=== PATIENT | female | born 1985 | race African-American/Black ===

== ENCOUNTER 2018-08-07 12:34 | Outpatient (CLI) | payer MEDICAID ==
[2018-08-07 12:55] VITALS: BP 117/72
--- NOTE | 2018-08-08 09:11 | Ultrasound Report ---
OB LIMITED INDICATION: Evaluate MILLIE. COMPARISON: None similar. TECHNIQUE: Transabdominal grayscale ultrasound with Doppler interrogation. Gestation: Jean Position: Cephalic Amniotic Fluid: WNL (7-24 cm) MILLIE = 23.3 cm Heart Rate: 158 BPM CONCLUSION: Findings, as above.
== END 2018-08-07 14:59 | disposition home or self-care (01) ==
LOC: TRG 12:34
PROVIDERS: ATTEND Obstetrics & Gynecology
DX: O47.02 False labor before 37 completed weeks of gestation, second trimester (principal); Z3A.27 27 weeks gestation of pregnancy
CPT/HCPCS: 59025; 76815

== ENCOUNTER 2018-09-24 20:42 | Outpatient (CLI) | payer MEDICAID ==
[2018-09-24] MEDS ORDERED: LACTATED RINGERS 500 ML IV ONE (20:53)
[2018-09-24 21:33] VITALS: BP 107/53
[2018-09-24 21:53] LABS: Bacteria,Urine 2+ /HPF (Negative); Bilirubin,Urine NEG (Negative); Blood,Urine LG (Negative); Color,Urine Straw (Yellow); Protein,Urine <15 mg/dL mg/dL (Negative); Urobilinogen,Urine < 2.0 mg/dL (<2.0)
== END 2018-09-24 22:40 | disposition home or self-care (01) ==
LOC: TRG 20:42
PROVIDERS: ATTEND Obstetrics & Gynecology
DX: O46.93 Antepartum hemorrhage, unspecified, third trimester (principal); O24.410 Gestational diabetes mellitus in pregnancy, diet controlled; Z3A.35 35 weeks gestation of pregnancy
CPT/HCPCS: 59025; 81001; 87086

== ENCOUNTER 2018-10-05 10:46 | Outpatient (CLI) | payer MEDICAID ==
[2018-10-05 11:19] VITALS: BP 108/71
[2018-10-05] MEDS ORDERED: LACTATED RINGERS 500 ML IV ONE (14:00)
== END 2018-10-05 16:00 | disposition home or self-care (01) ==
LOC: TRG 10:46
PROVIDERS: ATTEND Obstetrics & Gynecology
DX: O26.893 Other specified pregnancy related conditions, third trimester (principal); R10.13 Epigastric pain; O24.419 Gestational diabetes mellitus in pregnancy, unspecified control; Z3A.36 36 weeks gestation of pregnancy
CPT/HCPCS: 59025; 96360; J7120

== ENCOUNTER 2018-10-23 17:45 | Inpatient (IN) | payer MEDICAID ==
--- NOTE | 2018-10-23 18:14 | History and Physical Report ---
<SABI SLAUGHTER - Last Filed: 10/23/18 19:09> History of Present Illness Date of examination: 10/23/18 (sent from [facility] for IOL) History of present illness: EDC Confirmation: 11/01/2018 Gestational Age: 12 2/7 weeks Past History : 1 Term Births: 0 Premature Births: 0 Living Children: 0 Para: 0 Mult. Births: 0 Prev : 0 Aborta: 0 Elect. Ab: 0 Spont. 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 of genital herpes: no Genetic History Congenital Heart Defect: Mom: no Dad: no Kimberly Disease: Mom: no Dad: no Thalassemia Mom: no Dad: no Neural Tube Defect Mom: no Dad: no Down's Syndrome Mom: no Dad: no Scott-Sachs Mom: no Dad: no Sickle Cell Disease/Trait Mom: no Dad: no Hemophilia Mom: no Dad: no Muscular Dystrophy Mom: no Dad: no Cystic Fibrosis Mom: no Dad: no Anders Chorea Mom: no Dad: no Mental Retardation Mom: no Dad: no Fragile X Mom: no Dad: no Other Genetic/Chromosomal Disorder Mom: no Dad: no Child w/other defect Mom: no Dad: no Current Allergies: No known allergies Past History - Obstetrical History Expected Date of Delivery: 11/01/18 Actual Gestation: 38 Week(s) 5 Day(s) : 1 Para: 0 Hx # Term Pregnancies: 0 Number of Pregnancies: 0 Spontaneous Abortions: 0 Induced : 0 Number of Living Children: 0 Medications and Allergies Allergies Allergy/AdvReac Type Severity Reaction Status Date / Time No Known Allergies Allergy Verified 08/07/18 12:56 Home Medications Medication Instructions Recorded Confirmed Last Taken Type No Known Home Medications [No 10/23/18 10/23/18 Unknown History Reported Home Medications] - Physical Exam Breasts: Positive: deferred Cardiovascular: Regular rate, Normal S1, Normal S2 Lungs: Positive: Normal air movement Abdomen: Positive: normal appearance, soft, normal bowel sounds. Negative: distention, tenderness Genitourinary (Female): Positive: normal external genitalia Vulva: both: normal Vagina: Positive: normal moisture. Negative: discharge Cervix: Negative: lesion, discharge Uterus: Positive: normal size, normal contour Adnexa: both: normal Anus/Rectum: Positive: normal perianal skin, heme negative. Negative: rectal mass, hemorrhoids Extremities: Positive: normal Deep Tendon Reflex Grade: Normal +2 - Obstetrical FHR: category 1 Uterine Contraction Monitor Mode: External Cervical Dilatation: 0 Cervical Effacement Percentage: 50 station: -3 Uterine Contraction Pattern: Irregular Uterine Tone Measurement Phase: Resting Uterine Contraction Intensity: Mild Results All other labs normal. GBS Positive HBsAg Screen Negative Negative *1 RPR Non Reactive Non Reactive *2 Rubella Antibodies, IgG 26.50 index Immune >0.99 *3 Non-immune <0.90 Equivocal 0.90 - 0.99 Immune >0.99 ABO Grouping B *4 Rh Factor Positive *5 Please note: Prior records for this patient's ABO / Rh type are not available for additional verification. Antibody Screen Negative Negative *6 WBC 10.7 x10E3/uL 3.4-10.8 *7 RBC 4.74 x10E6/uL 3.77-5.28 *8 Hemoglobin 12.6 g/dL 11.1-15.9 *9 Hematocrit 38.5 % 34.0-46.6 *10 MCV 81 fL 79-97 *11 MCH 26.6 pg 26.6-33.0 *12 MCHC 32.7 g/dL 31.5-35.7 *13 RDW 13.4 % 12.3-15.4 *14 Platelets 306 x10E3/uL 150-379 *15 Neutrophils 76 % Not Estab. *16 Lymphs 17 % Not Estab. *17 Monocytes 5 % Not Estab. *18 Eos 1 % Not Estab. *19 Basos 0 % Not Estab. *20 ! Immature Cells <No Reported Value> *21 Neutrophils (Absolute) [H] 8.1 x10E3/uL 1.4-7.0 *22 Lymphs (Absolute) 1.9 x10E3/uL 0.7-3.1 *23 Monocytes(Absolute) 0.5 x10E3/uL 0.1-0.9 *24 Eos (Absolute) 0.1 x10E3/uL 0.0-0.4 *25 Baso (Absolute) 0.0 x10E3/uL 0.0-0.2 *26 ! Immature Granulocytes 1 % Not Estab. *27 ! Immature Grans (Abs) 0.1 x10E3/uL 0.0-0.1 *28 ! NRBC <No Reported Value> *29 Hematology Comments: <No Reported Value> *30 Tests: (2) AFP Tetra ([id number]) ! Results Report *31 ! Test Results: *Screen Negative* *32 Tests: (3) Panel [id number] ([id number]) HIV Screen 4th Generation wRfx Non Reactive Non Reactive *55 Tests: (4) HCV Ab w/Rflx to Verification ([id number]) ! HCV Ab <0.1 s/co ratio 0.0-0.9 *56 Tests: (5) Comment: ([id number]) ! Comment: SPRCS *57 Non reactive HCV antibody screen is consistent with no HCV infection, unless recent infection is suspected or other evidence exists to indicate HCV infection. Tests: (6) Urine Culture, Routine ([id number]) Urine Culture, Routine Final report *58 Tests: (7) Result ([id number]) ! Result 1 No growth Assessment and Plan 33yo @ 38w5d sent from [facility] office for IOL due to new dx of polyhydramnios and existing dx of GDM, diet controlled. Pt is GBS positive. Will give Amp 2gm now and hold 1gm dose until active labor. aware. - Patient Problems (1) Group B Streptococcus carrier state affecting Onset Date: ~10/23/18 Current Visit: Yes Status: Acute Plan to address problem: Ampicillin per protocol (2) Gestational diabetes, diet controlled Onset Date: ~10/23/18 Current Visit: Yes Status: Acute Plan to address problem: POC BS fasting and Q6hr Will report BS out of range >150 <JACLYN BYRNE - Last Filed: 10/23/18 22:30> Medications and Allergies Active Meds: Active Medications Ephedrine Sulfate (Ephedrine Sulfate) 10 mg IV Q2M PRN PRN Reason: Hypotension Fentanyl (Sublimaze) 100 mcg IV Q2H PRN PRN Reason: Labor Pain Oxytocin/Sodium Chloride (Pitocin/Ns 20 Unit/1000ml Drip) 20 units in 1,000 mls @ 125 mls/hr IV DIRECT MINDA Lactated Ringer's (Lactated Ringers) 1,000 mls @ 125 mls/hr IV DIRECT MINDA Ampicillin Sodium (Ampicillin/Ns 1 Gm/50 Ml) 1 gm in 50 mls @ 100 mls/hr IV Q4HR MINDA; Protocol Mineral Oil (Mineral Oil) 30 ml PO QHS PRN PRN Reason: Constipation Ondansetron HCl (Zofran) 4 mg IV Q8H PRN PRN Reason: Nausea And Vomiting Terbutaline Sulfate (Brethine) 0.25 mg SUB-Q ONCE PRN PRN Reason: Hyperstimulation/Hypertonicity - Vital Signs Vital signs: Vital Signs Pulse BP 102 H 102/67 10/23/18 18:31 10/23/18 18:31 Temp Pulse Resp BP Pulse Ox 98.9 F 99 H 18 114/74 10/23/18 19:14 10/23/18 19:16 10/23/18 19:14 10/23/18 19:16 Results Result Diagrams: 10/23/18 19:09 All other labs normal. Assessment and Plan Patient admitted for IOL d/t polyhydramnios, GDM at 38 5/7wga per [facility]. Spoke with patient with Anderson Slaughter and her present,plan of care reiterated. Cervidil placed at ~1900. Questions were encouraged and answered. They voiced understanding - Patient Problems (1) 38 weeks gestation of Current Visit: Yes Status: Acute (2) Gestational diabetes, diet controlled Onset Date: ~10/23/18 Current Visit: Yes Status: Acute (3) Group B Streptococcus carrier state affecting Onset Date: ~10/23/18 Current Visit: Yes Status: Acute (4) Polyhydramnios in third trimester Current Visit: Yes Status: Acute
[2018-10-23] MEDS ORDERED: CERVIDIL VG ONE (18:16)
[2018-10-23] MEDS ORDERED: SUBLIMAZE IV PRN (18:16)
[2018-10-23] MEDS ORDERED: BRETHINE SUB-Q PRN (18:16)
[2018-10-23] MEDS ORDERED: MINERAL OIL PO PRN (18:16)
[2018-10-23] MEDS ORDERED: AMPICILLIN/NS 2 GM/100 ML 2 GM/100 ML BAG IV ONE (18:16)
[2018-10-23] MEDS ORDERED: XYLOCAINE 2% INFILTRATI ONE (18:16)
[2018-10-23] MEDS ORDERED: ZOFRAN IV PRN (18:16)
[2018-10-23] MEDS ORDERED: PITOCin/NS 20 UNIT/1000ML DRIP 20 UNITS/1,000 ML BAG IV SCH (19:00)
[2018-10-23 19:56] LABS: Hematocrit 40.2 % (30.3-42.9); Hemoglobin 13.7 gm/dl (10.1-14.3); Mean Corpuscular HGB Conc 34 % (30-34); Mean Corpuscular Volume 82 fl (79-97); Platelet Count 271 K/mm3 (140-440); Red Blood Count 4.91 M/mm3 (3.65-5.03); Red Cell Distribution Width 14.8 % (13.2-15.2)
[2018-10-24] MEDS ORDERED: AMBIEN PO PRN (01:56)
[2018-10-24] MEDS: AMPICILLIN/NS 1 GM/50 ML 1 GM/50 ML BAG IV SCH ×6 (02:12→21:15)
[2018-10-24] MEDS: LACTATED RINGERS 1,000 ML IV SCH ×5 (04:29→21:00)
--- NOTE | 2018-10-24 09:16 | Progress Note ---
Assessment and Plan Patient resting in bed, she reports being comfortable, states she slept well, did not feel many contractions throughout the night or at current. Reports feeling "funny" after shot she received this morning to stop her contractions. HR currently 120s. SVE 3.5/50/-3, patient very uncomfortable during examination making it difficult to obtain good assessment. Cat 1 tracing, irregular contractions on TOCO, palpating mild. VSSAF. Patient requesting to have breakfast. Will allow to eat and begin pitocin per order by Dr. Bee. DWP POC, she verbalizes understanding. Denies any needs at this time Subjective - Subjective Date of service: 10/24/18 Principal diagnosis: IOL polyhydramnios and GDM Patient reports: movement normal, contractions (occasional, "not painful" ), no new complaints, no loss of fluid, no vaginal bleeding Objective - Vital Signs Vital Signs: Vital Signs - 12hr 10/24/18 10/24/18 10/24/18 00:34 01:18 01:54 Temperature 98.1 F Pulse Rate 80 87 Respiratory 16 Rate Blood Pressure 109/66 108/58 10/24/18 10/24/18 10/24/18 02:18 03:19 04:18 Temperature Pulse Rate 83 80 85 Respiratory Rate Blood Pressure 114/56 105/57 100/58 10/24/18 10/24/18 10/24/18 05:19 06:19 07:47 Temperature Pulse Rate 103 H 99 H 121 H Respiratory Rate Blood Pressure 94/55 101/57 101/55 10/24/18 10/24/18 10/24/18 07:56 08:27 08:56 Temperature Pulse Rate 131 H 122 H 129 H Respiratory Rate Blood Pressure 101/59 104/59 105/66 - Exam Breasts: normal Cardiovascular: Regular rate, Normal S1, Normal S2 Lungs: Clear to auscultation, Normal air movement Abdomen: Present: normal appearance, soft, normal bowel sounds. Absent: distention, tenderness Vulva: both: normal Uterus: Present: normal FHR: auscultation normal Uterine Contraction Monitor Mode: External Uterine Contraction Pattern: Irregular Uterine Tone Measurement Phase: Contraction Uterine Contraction Intensity: Mild Extremities: normal Deep Tendon Reflex Grade: Normal +2 - Labs Labs: Laboratory Results - last 24 hr 10/23/18 10/23/18 10/24/18 19:09 19:09 07:08 WBC 8.9 RBC 4.91 Hgb 13.7 Hct 40.2 MCV 82 MCH 28 MCHC 34 RDW 14.8 Plt Count 271 POC Glucose 96 Blood Type B POSITIVE Antibody Screen Negative
[2018-10-24] MEDS ORDERED: PITOCin/NS 30 UNIT/500ML 30,000 MILLIUNITS/500 ML BAG IV ONE (09:17)
[2018-10-24] MEDS: PITOCin/NS 30 UNIT/500ML 30,000 MILLIUNITS/500 ML BAG IV SCH ×6 (10:50→23:30)
[2018-10-24] MEDS ORDERED: PITOCin/NS 30 UNIT/500ML 30 UNITS/500 ML BAG IV SCH (12:00)
--- NOTE | 2018-10-24 12:45 | Event Note ---
Date: 10/24/18 SVE is unchanged, patient is sleeping, reports feeling comfortable. VSSAF. Requested RN continue to increase pitocin 4x4 as ordered, she reports she is unable to increase pitocin as ordered d/t acuity of other patient's on the unit. Dr. Bee aware.
--- NOTE | 2018-10-24 20:08 | Progress Note ---
Assessment and Plan - Patient Problems (1) 38 weeks gestation of Current Visit: Yes Status: Acute (2) Gestational diabetes, diet controlled Onset Date: ~10/23/18 Current Visit: Yes Status: Acute Qualifiers: Trimester: third trimester Qualified Code(s): O24.410 - Gestational diabetes mellitus in , diet controlled Plan to address problem: -CONT WITH IOL -EPIDURAL BOLUS GOING AT THIS TIME -ANTICIPATE . (3) Group B Streptococcus carrier state affecting Onset Date: ~10/23/18 Current Visit: Yes Status: Acute (4) Polyhydramnios in third trimester Current Visit: Yes Status: Acute Subjective - Subjective Date of service: 10/24/18 Principal diagnosis: IUP 38.6 WEEKS FOR IOL FOR POLY AND GDM Interval history: PT DOING WELL HAVING CONTRACTIONS BUT NOT FEELING THEM WHILE OFF THE PITOCIN. PT EXAMINED AND NOW /-. SHE DOES DESIRE AN EPIDURAL SHE DOSE NOT TOLERATE THE EXAM WELL AND DID NOT WANT AROM WITHOUT THE EPIDURAL. I D/W AND HER AROM AND ACTIVE LABOR MANAGEMENT. BOTH EXPRESSED UNDERSTANDING AND QUESTIONS WERE ADDRESSED AND ANSWERED. Patient reports: movement normal, contractions, no new complaints, no loss of fluid Objective - Vital Signs Vital Signs: Vital Signs - 12hr 10/24/18 10/24/18 10/24/18 08:27 08:56 09:27 Temperature Pulse Rate 122 H 129 H 117 H Respiratory Rate Blood Pressure 104/59 105/66 113/64 10/24/18 10/24/18 10/24/18 09:56 10:28 10:58 Temperature Pulse Rate 127 H 122 H 120 H Respiratory Rate Blood Pressure 114/70 100/56 103/58 10/24/18 10/24/18 10/24/18 11:56 12:26 12:57 Temperature Pulse Rate 109 H 100 H 96 H Respiratory Rate Blood Pressure 88/54 91/56 110/63 10/24/18 10/24/18 10/24/18 13:09 13:27 13:58 Temperature 98.5 F Pulse Rate 91 H 95 H Respiratory Rate Blood Pressure 107/60 111/59 10/24/18 10/24/18 10/24/18 14:27 14:56 15:27 Temperature Pulse Rate 82 81 81 Respiratory Rate Blood Pressure 106/62 107/66 115/70 10/24/18 10/24/18 10/24/18 15:57 16:27 16:57 Temperature Pulse Rate 76 77 84 Respiratory Rate Blood Pressure 119/67 110/65 109/72 10/24/18 10/24/18 10/24/18 17:27 18:17 19:00 Temperature 99.5 F Pulse Rate 82 92 H Respiratory 14 Rate Blood Pressure 116/72 120/69 10/24/18 19:05 Temperature 98.6 F Pulse Rate Respiratory Rate Blood Pressure - Exam FHR: category 1 Cervical Dilatation: 5.5 Cervical Effacement Percentage: 70 station: -1 Uterine Contraction Pattern: Regular Uterine Contraction Intensity: Mild - Labs Labs: Laboratory Results - last 24 hr 10/23/18 10/23/18 10/24/18 19:09 19:09 07:08 POC Glucose 96 RPR Nonreactive Blood Type B POSITIVE Antibody Screen Negative
[2018-10-24] MEDS ORDERED: NARCAN 2 MG/2 ML IV PRN (21:14)
--- NOTE | 2018-10-24 21:14 | Anesthesia Consultation ---
Anesthesia Consult and Med Hx Date of service: 10/24/18 - Airway Anesthetic Teeth Evaluation: Good ROM Head & Neck: Adequate Mental/Hyoid Distance: Adequate Mallampati Class: Class II Intubation Access Assessment: Probably Good - Pulmonary Exam CTA: Yes - Cardiac Exam Cardiac Exam: RRR - Pre-Operative Health Status ASA Pre-Surgery Classification: ASA2 Proposed Anesthetic Plan: Epidural - Pulmonary Hx Asthma: No COPD: No Hx Pneumonia: No - Cardiovascular System Hx Hypertension: No - Central Nervous System Hx Seizures: No Hx Psychiatric Problems: No - Endocrine Hx Renal Disease: No Hx End Stage Renal Disease: No Hx Hypothyroidism: No Hx Hyperthyroidism: No - Hematic Hx Anemia: No Hx Sickle Cell Disease: No - Other Systems Hx Alcohol Use: No - Additional Comments Anesthesia Medical History Comments: gestational diabetes
[2018-10-24] MEDS ORDERED: fentaNYL-BUPIV 2 MCG/ML-0.125% 200 MCG/100 ML BAG EPIDURAL SCH (22:00)
--- NOTE | 2018-10-24 22:24 | Progress Note ---
Assessment and Plan - Patient Problems (1) 38 weeks gestation of Current Visit: Yes Status: Acute (2) Gestational diabetes, diet controlled Onset Date: ~10/23/18 Current Visit: Yes Status: Acute Qualifiers: Trimester: third trimester Qualified Code(s): O24.410 - Gestational diabetes mellitus in , diet controlled Plan to address problem: -CONT WITH IOL -EPIDURAL IN PLACE -ANTICIPATE . -RESTAT PITOCIN AT THIS TIME -IUPC PLACED (3) Group B Streptococcus carrier state affecting Onset Date: ~10/23/18 Current Visit: Yes Status: Acute (4) Polyhydramnios in third trimester Current Visit: Yes Status: Acute Subjective - Subjective Date of service: 10/24/18 Principal diagnosis: IUP 38.6 WEEKS FOR IOL FOR POLY AND GDM Interval history: s/p epidural. pt comfortable. AROM with large amount of clear fluid noted. IUPC placed w/o difficulty with clear fluid flashed back in cath. ISE not placed at this time as baby is tracing well. Pt has gotten several doses of ampicillin prior to AROM. Patient reports: movement normal, contractions, no new complaints, no loss of fluid Objective - Vital Signs Vital Signs: Vital Signs - 12hr 10/24/18 10/24/18 10/24/18 10:28 10:58 11:56 Temperature Pulse Rate 122 H 120 H 109 H Respiratory Rate Blood Pressure 100/56 103/58 88/54 O2 Sat by Pulse Oximetry 10/24/18 10/24/18 10/24/18 12:26 12:57 13:09 Temperature 98.5 F Pulse Rate 100 H 96 H Respiratory Rate Blood Pressure 91/56 110/63 O2 Sat by Pulse Oximetry 10/24/18 10/24/18 10/24/18 13:27 13:58 14:27 Temperature Pulse Rate 91 H 95 H 82 Respiratory Rate Blood Pressure 107/60 111/59 106/62 O2 Sat by Pulse Oximetry 10/24/18 10/24/18 10/24/18 14:56 15:27 15:57 Temperature Pulse Rate 81 81 76 Respiratory Rate Blood Pressure 107/66 115/70 119/67 O2 Sat by Pulse Oximetry 10/24/18 10/24/18 10/24/18 16:27 16:57 17:27 Temperature Pulse Rate 77 84 82 Respiratory Rate Blood Pressure 110/65 109/72 116/72 O2 Sat by Pulse Oximetry 10/24/18 10/24/18 10/24/18 18:17 19:00 19:05 Temperature 99.5 F 98.6 F Pulse Rate 92 H Respiratory 14 Rate Blood Pressure 120/69 O2 Sat by Pulse Oximetry 10/24/18 10/24/18 10/24/18 20:34 20:39 20:44 Temperature Pulse Rate 92 H 96 H 96 H Respiratory Rate Blood Pressure O2 Sat by Pulse 98 97 97 Oximetry 10/24/18 10/24/18 10/24/18 20:49 20:54 20:56 Temperature Pulse Rate 95 H 91 H 100 H Respiratory Rate Blood Pressure 131/60 O2 Sat by Pulse 98 96 Oximetry 10/24/18 10/24/18 10/24/18 20:59 21:02 21:04 Temperature Pulse Rate 99 H 87 96 H Respiratory Rate Blood Pressure 127/63 121/66 O2 Sat by Pulse 100 98 Oximetry 10/24/18 10/24/18 10/24/18 21:06 21:09 21:10 Temperature Pulse Rate 104 H 100 H 102 H Respiratory Rate Blood Pressure 116/62 125/75 114/67 O2 Sat by Pulse 97 Oximetry 10/24/18 10/24/18 10/24/18 21:12 21:14 21:18 Temperature Pulse Rate 92 H 98 H 84 Respiratory Rate Blood Pressure 107/64 109/62 O2 Sat by Pulse 97 97 Oximetry 10/24/18 10/24/18 10/24/18 21:20 21:23 21:26 Temperature Pulse Rate 88 96 H 93 H Respiratory Rate Blood Pressure 106/66 106/62 O2 Sat by Pulse 97 Oximetry 10/24/18 10/24/18 10/24/18 21:29 21:31 21:34 Temperature Pulse Rate 81 89 94 H Respiratory Rate Blood Pressure 103/60 103/61 O2 Sat by Pulse 98 98 Oximetry 10/24/18 10/24/18 10/24/18 21:38 21:42 21:44 Temperature Pulse Rate 82 89 90 Respiratory Rate Blood Pressure 105/63 101/61 O2 Sat by Pulse 99 99 Oximetry 10/24/18 22:15 Temperature Pulse Rate 90 Respiratory Rate Blood Pressure 98/63 O2 Sat by Pulse Oximetry - Exam Cervical Dilatation: 5.5 (IUPC placed w/o difficulty) Cervical Effacement Percentage: 70 station: -1 - Labs Labs: Laboratory Results - last 24 hr 10/23/18 10/24/18 19:09 07:08 POC Glucose 96 RPR Nonreactive
[2018-10-25] MEDS: PITOCin/NS 30 UNIT/500ML 30,000 MILLIUNITS/500 ML BAG IV SCH ×7 (00:30→05:15)
[2018-10-25] MEDS: AMPICILLIN/NS 1 GM/50 ML 1 GM/50 ML BAG IV SCH ×2 (01:00→05:15)
--- NOTE | 2018-10-25 01:30 | Event Note ---
Date: 10/25/18 Pt having some pain with contractions. Anesthesia has been called to give bolus of epidural. cx 6-7/100/0. pt has made small change in dilation but has changed in effacement and station at this time. I d/w pt and the labor curve and while she is off the curve she is still making progress and baby status is reassuring. Therefore, no operative delivery via c/s is needed at this time. MVUs as per RN just became 120 as pt was having no contractions. Piticin just at 10mus being increased to 12 at this time. I again d/w pt and importance of adequate contractions for the progression of labor. Pt and have no questions at this time. RN at bedside at time of exam and exam was charted.
[2018-10-25] MEDS ORDERED: DEXMEDETOMIDINE IV ONE (01:50)
[2018-10-25] MEDS ORDERED: MARCAINE 0.25% INFILTRATI ONE (01:52)
[2018-10-25] MEDS: LACTATED RINGERS 1,000 ML IV SCH (02:35)
--- NOTE | 2018-10-25 04:50 | Event Note ---
Date: 10/25/18 Pt c/c/1+ but with poor maternal pushing effort. Will allow pt to labor down more. Pushing was for 30 minutes. Will re-evaluate in an hour to 45 minutes with potion changes. Pt current with one let is stirrup on maternal left side. Plan of care d/w pt and . No questions were asked at this time.
[2018-10-25] MEDS ORDERED: XYLOCAINE 1% 20 mL INFILTRATI STA (05:38)
[2018-10-25] MEDS ORDERED: XYLOCAINE 2% INFILTRATI ONE (06:41)
[2018-10-25] MEDS ORDERED: METHERGINE IM ONE (07:53)
--- NOTE | 2018-10-25 08:34 | Procedure Note ---
OB Delivery Note - Delivery Date of Delivery: 10/25/18 Surgeon: JELLY DEVLIN Estimated blood loss: other (400ml) - Vaginal Delivery presentation: vertex Delivery position: OA Intrapartum events: prolonged active phase, prolonged 2nd stage>2.5hr Delivery induction: cervidil Delivery augmentation: rupture of membranes, pitocin Delivery monitor: external FHT, external uterine, internal uterine Route of delivery: Delivery placenta: spontaneous Episiotomy: midline Delivery laceration: 3rd degree (partial extension with rectus muscles intact) Delivery repair: vicryl (3-0 and 2-0) Anesthesia: intravenous, epidural Delivery comments: Pt progressed to c/c/1+ and remained complete for about 4 hours until delivery. She pushed for about 3 hours but with poor maternal pushing effort until the last 30 minutes until delivery. Delivery as above. Head delivered without difficulty. Ant shoulder and rest of delivered without difficulty. Infant placed on maternal abdomen. No shoulder dystocia was noted. Infant delivered over a MLE. Placenta delivered spontaneously intact. Cord blood was not collected. MLE was noted to have a partial 3rd degree extension. Repair done in usual fashion. Mother and stable in LDR. Local was used for the repair. EBL 400ml. Uterine atony was noted and relieved with massage and IV pitocin. - Infant A at 1 minute: 8 at 5 minutes: 9 Gender: Female (8lbs 0.1 oz)
[2018-10-25] MEDS ORDERED: PITOCin/NS 20 UNIT/1000ML DRIP 20 UNITS/1,000 ML BAG IV SCH (12:23)
[2018-10-25] MEDS ORDERED: DERMOPLAST TP PRN (12:23)
[2018-10-25] MEDS ORDERED: TYLENOL PO PRN (12:23)
[2018-10-25] MEDS ORDERED: DULCOLAX PR PRN (12:23)
[2018-10-25] MEDS ORDERED: MILK OF MAGNESIA PO PRN (12:23)
[2018-10-25] MEDS ORDERED: TUCKS PAD TP PRN (12:23)
[2018-10-25] MEDS ORDERED: LANSINOH TP PRN (12:23)
[2018-10-25] MEDS ORDERED: BENADRYL PO PRN (12:23)
[2018-10-25] MEDS ORDERED: PHENERGAN PO PRN (12:23)
[2018-10-25] MEDS ORDERED: SODIUM CHLORIDE FLUSH SYRINGE 10 ML IV SCH (12:23)
[2018-10-25] MEDS: PRENATAL VITAMIN PO SCH (16:04)
[2018-10-25] MEDS: IBUPROFEN PO SCH ×2 (16:04→21:56)
[2018-10-25 18:56] LABS: Hematocrit 30.5 % (30.3-42.9); Hemoglobin 10.6 gm/dl (10.1-14.3)
[2018-10-25] MEDS: COLACE PO SCH (21:56)
[2018-10-26] MEDS: IBUPROFEN PO SCH ×4 (06:11→18:09)
[2018-10-26] MEDS: COLACE PO SCH ×2 (10:35→21:30)
[2018-10-26] MEDS: PRENATAL VITAMIN PO SCH (10:35)
[2018-10-26] MEDS ORDERED: BOOSTRIX IM ONE (12:00)
[2018-10-26] MEDS ORDERED: MYLICON ONE (13:50)
--- NOTE | 2018-10-26 14:02 | Progress Note ---
Assessment and Plan VSSAF, patient doing well. c/p feeling overall fatigued; advised normal after 3hrs of pushing and vaginal to feel fatigued. She c/o pain in her left breast - breast noted to be slightly more firm than her right - suggested feeding infant from left breast first at next feed. Lochia scant, fundus firm, H&H 10.6/30.5. - Patient Problems (1) (spontaneous vaginal delivery) Current Visit: Yes Status: Acute Plan to address problem: Encouraged frequent continue pathway anticipate d/c home tomorrow Subjective - Subjective Date of service: 10/26/18 Principal diagnosis: day #1 s/p Patient reports: appetite normal, voiding normally, pain well controlled, flatus, ambulating normally, other (left breast pain), no dizzy ambulation, no nauseated Morris: doing well, nursing well Objective - Vital Signs Latest vital signs: Vital Signs Temp Pulse Resp BP BP Pulse Ox 10/26/18 08:36 97.9 F 78 20 100/61 10/26/18 00:40 98.4 F 101 H 18 100/58 96 10/25/18 17:10 98.6 F 115 H 18 111/72 96 Intake and Output 10/25/18 10/26/18 10/26/18 23:59 07:59 15:59 Intake Total 890 1630 120 Output Total 400 Balance 490 1630 120 Intake: Oral 890 1630 120 Output: Urine 400 Void 400 Other: Total, Intake Amount 890 930 120 Total, Output Amount 400 # Voids Void 1 1 - Exam Breasts: Present: normal, , other (left breast starting to fill, encouraged frequent feeding) Cardiovascular: Present: Regular rate Lungs: Present: Clear to auscultation, Normal air movement Abdomen: Present: normal appearance, soft Vulva: both: laceration/episiotomy Uterus: Present: normal, firm, fundal height at umbilicus Extremities: Present: normal Deep Tendon Reflex Grade: Normal +2
[2018-10-27] MEDS: IBUPROFEN PO SCH ×3 (06:44→12:46)
--- NOTE | 2018-10-27 10:27 | Discharge Summary ---
Providers - Providers Date of Admission: 10/23/18 18:16 Date of discharge: 10/27/18 Attending physician: JACLYN BYRNE Primary care physician: JACLYN BYRNE Hospitalization Reason for admission: IOL for polyhydramnios and GDM Condition: Good Pertinent studies: post delivery H&H 10.6/30.5 Procedures: Hospital course: with 3rd degree repair, uneventful course Disposition: DC-01 TO HOME OR SELFCARE Core Measure Documentation - Palliative Care Palliative Care/ Comfort Measures: Not Applicable - Core Measures Any of the following diagnoses?: none Exam - Constitutional Vitals: Temp Pulse Resp BP Pulse Ox 98.1 F 72 16 111/69 95 10/27/18 08:01 10/27/18 08:01 10/27/18 08:01 10/27/18 08:01 10/27/18 08:01 General appearance: Present: no acute distress, well-nourished - EENT Eyes: Present: PERRL ENT: hearing intact, clear oral mucosa - Neck Neck: Present: supple, normal ROM - Respiratory Respiratory effort: normal Respiratory: bilateral: CTA - Cardiovascular Rhythm: regular Heart Sounds: Present: S1 & S2. Absent: rub, click - Extremities Extremities: pulses symmetrical, No edema Peripheral Pulses: within normal limits - Abdominal General gastrointestinal: Present: soft, non-tender, non-distended, normal bowel sounds Female genitourinary: Present: normal - Integumentary Integumentary: Present: clear, warm, dry - Musculoskeletal Musculoskeletal: gait normal, strength equal bilaterally - Psychiatric Psychiatric: appropriate mood/affect, intact judgment & insight - Neurologic Neurologic: CNII-XII intact, moves all extremities - Additional findings Additional findings: POD 2 Patient resting in bed, reports feeling well. Fundus is firm, ML, U/2. Vaginal bleeding is small, patient denies any heavy bleeding or clots. perineal repair is healing well. patient reports tenderness still, encouraged to continue motrin around the clock, ice packs to perineum as well as warm sitz baths. DWP proper hygiene/care for laceration. pt voices concern for having BM-colace ordered, increase water and fiber diet. she reports +flatus. Breast assessment is WNL, she reports small area on left breast that is tender, area is not firm or reddened. Encouraged pt to continue nursing infant on that breast. DWP s/s mastitis, plugged duct to look out for. DWP pts post delivery H&H. She denies any dizziness or feeling faint with ambulation today. VSSAF> Pt desires discharge today. DWP danger signs to report after discharge. she and FOC report condom use desires for contraception, they decline need for OCP or device. f/u PP in 6 weeks. Plan Activity: advance as tolerated Diet: regular, other (high fiber. increase water intake) Wound: open to air, keep clean and dry Care Plan Goals: [] Smoking cessation referral if applicable(refer to patient education folder for contact #) [] Refer to [facility]'s [facility] Booklet Call your doctor immediately for: * Fever > 100.5 * Heavy vaginal bleeding ( >1 pad per hour) * Severe persistent headache * Shortness of breath * Reddened, hot, painful area to leg or breast Call office to schedule follow up visit. Follow up with: JACLYN BYRNE MD [Primary Care Provider] - 6 Weeks (Congratulations! Please call [phone] to schedule your appointment in 6 weeks. Call with any questions or concerns. ) Forms: [facility] Discharge Summary Prescriptions: Docusate Sodium [Colace] 100 mg PO BID PRN #60 capsule PRN Reason: Constipation Ibuprofen [Motrin] 800 mg PO Q8HR PRN #30 tablet PRN Reason: Pain , Severe (7-10)
[2018-10-27] MEDS: PRENATAL VITAMIN PO SCH (10:37)
[2018-10-27] MEDS: COLACE PO SCH (10:37)
[2018-10-27] MEDS ORDERED: MYLICON PO PRN (11:04)
[2018-10-27 15:12] VITALS: BP 118/69
== END 2018-10-27 15:29 | disposition home or self-care (01) | DRG 775 ==
LOC: TRG 17:45 → LD 17:46 → TRG 18:16 → LD 10-24 09:25 → OB 10-25 11:55
PROVIDERS: ADMIT Obstetrics & Gynecology; ATTEND Obstetrics & Gynecology
PROC: 10H07YZ Insertion of Other Device into Products of Conception, Via Natural or Artificial Opening (ICD-10-PCS; 2018-10-24)
PROC: 10907ZC Drainage of Amniotic Fluid, Therapeutic from Products of Conception, Via Natural or Artificial Opening (ICD-10-PCS; 2018-10-24)
PROC: 10E0XZZ Delivery of Products of Conception, External Approach (ICD-10-PCS; principal; 2018-10-25)
PROC: 0DQR0ZZ Repair Anal Sphincter, Open Approach (ICD-10-PCS; 2018-10-25)
PROC: 3E0P7VZ Introduction of Hormone into Female Reproductive, Via Natural or Artificial Opening (ICD-10-PCS; 2018-10-25)
PROC: 0W8NXZZ Division of Female Perineum, External Approach (ICD-10-PCS; 2018-10-25)
PROC: 3E0R3BZ Introduction of Anesthetic Agent into Spinal Canal, Percutaneous Approach (ICD-10-PCS; 2018-10-25)
PROC: 00HU33Z Insertion of Infusion Device into Spinal Canal, Percutaneous Approach (ICD-10-PCS; 2018-10-25)
PROC: 3E0234Z Introduction of Serum, Toxoid and Vaccine into Muscle, Percutaneous Approach (ICD-10-PCS; 2018-10-26)
DX: O99.824 Streptococcus B carrier state complicating childbirth (principal); O40.3XX0 Polyhydramnios, third trimester, not applicable or unspecified; O24.420 Gestational diabetes mellitus in childbirth, diet controlled; O70.20 Third degree perineal laceration during delivery, unspecified; Z37.0 Single live birth; Z3A.38 38 weeks gestation of pregnancy; Z23 Encounter for immunization
CPT/HCPCS: 36415; 59200; 82962; 85014; 85018; 85027; 86592; 86850; 86900; 86901; 88307; G0378; A6250; J0290; J2210; J2590; J3105; J3490; J7120